=== PATIENT | female | born 1970 | race Caucasian/White ===

== ENCOUNTER 2020-04-29 07:44 | Outpatient (REF) | payer OTHER, SELFPAY | END 2020-04-29 07:45 | disposition home or self-care (01) | LOC: HO.LAB 07:44 | PROVIDERS: Visit Provider Internal Medicine | DX: Z20.828 Contact with and (suspected) exposure to other viral communicable diseases (principal) | CPT/HCPCS: C9803; U0003 ==

== ENCOUNTER 2021-02-05 11:10 | Outpatient (REF) | payer OTHER, SELFPAY ==
[2021-02-05 14:03] LABS: Hematocrit 40.2 % (37-47); Hemoglobin 13.4 g/dl (12.0-16.0); Mean Corpuscular HGB Conc 33.3 g/dl (31.0-35.0); Mean Corpuscular Hemoglobin 31.6 pg (27.0-33.0); Mean Corpuscular Volume 94.8 fL (80-98); Mean Platelet Volume 10.2 fL (9.4-12.3); Platelet Count 269 X10*3/uL (160-400); Red Blood Count 4.24 X10*6/uL (4.20-5.50); Red Cell Distribution Width 12.5 % (11.0-16.0); White Blood Count 5.2 X10*3/uL (4.8-10.8)
[2021-02-05 14:10] LABS: Glucose Urine UA NEG (NEG); Leukocyte Esterase Urine NEG (NEG); Nitrite Urine NEG (NEG); PH 7.5 (5.0-8.0); Specific Gravity - Urine 1.015 (1.005-1.025); Urine Blood NEG (NEG); Urine Ketones NEG (NEG); Urine Protein NEG (NEG-TRACE)
[2021-02-05 14:14] LABS: Appearance Urine CLEAR; Color Urine YELLOW
[2021-02-05 14:31] LABS: Alanine Aminotransferase 19 U/L (0-31); Albumin Level 4.4 g/dL (3.5-5.0); Alkaline Phosphatase 41 U/L (39-117); Anion Gap 16 (12-20); Aspartate Amino Transferase 22 U/L (5-31); Bilirubin Total 0.6 mg/dL (0.0-1.0); Blood Urea Nitrogen 12 mg/dL (9-16); Calcium 9.7 mg/dL (8.4-10.2); Carbon Dioxide 26 mmol/L (22-29); Chloride 103 mmol/L (96-108); Cholesterol 187 mg/dL; Estimated Glomerular Filt Rate > 60; Glucose Fasting 93 mg/dL (60-99); HDL Cholesterol 77 mg/dL; LDL Cholesterol Calculated 97 mg/dl; Potassium 4.6 mmol/L (3.3-5.1); Sodium 140 mmol/L (135-145); Total Protein 7.7 g/dL (6.5-8.0); Triglycerides 67 mg/dL
[2021-02-05 14:36] LABS: Bacteria Urine 1+ /LPF; RBC Urine 0-2 /HPF (0); Squamous Epithelial Cell Urine 3+ /LPF; WBC Urine 0-2 /HPF (0-4)
[2021-02-05 14:46] LABS: TSH reflex Free T4 1.16 uIU/mL (0.32-4.0)
== END 2021-02-05 11:11 | disposition home or self-care (01) ==
LOC: HO.HMGCLDS 11:10
PROVIDERS: PCP Internal Medicine; Visit Provider Internal Medicine
DX: Z00.00 Encounter for general adult medical examination without abnormal findings (principal)
CPT/HCPCS: 36415; 80053; 80061; 81001; 84443; 85027

== ENCOUNTER 2023-01-07 06:41 | Outpatient (REF) | payer OTHER, SELFPAY ==
[2023-01-07 11:39] LABS: Hematocrit 40.4 % (37.0-47.0); Hemoglobin 13.2 g/dl (12.0-16.0); Mean Corpuscular HGB Conc 32.7 g/dl (31.0-35.0); Mean Corpuscular Hemoglobin 31.5 pg (27.0-33.0); Mean Corpuscular Volume 96.4 fL (80.0-98.0); Mean Platelet Volume 10.2 fL (9.4-12.3); Platelet Count 276 X10*3/uL (160-400); Red Blood Count 4.19 X10*6/uL (4.20-5.50); Red Cell Distribution Width 12.4 % (11.0-16.0); White Blood Count 5.7 X10*3/uL (4.8-10.8)
[2023-01-07 11:55] LABS: Appearance Urine Cloudy; Color Urine Yellow; Glucose Urine UA Negative (Negative); Leukocyte Esterase Urine Small (1+) (Negative); Nitrite Urine Negative (Negative); PH 5.5 (5.0-9.0); Specific Gravity - Urine 1.025 (1.005-1.025); UMIC TRIGGER UA YES; Urine Blood Negative (Negative); Urine Ketones 40 mg/dL (Negative); Urine Protein Negative (Neg-Trace)
[2023-01-07 11:59] LABS: Bacteria Urine 1+ (None Seen); Hyaline Casts Urine 0-2 /LPF (0-2); RBC Urine 0-2 /HPF (0-2)
[2023-01-07 12:08] LABS: Alanine Aminotransferase 14 U/L (0-31); Albumin Level 4.2 g/dL (3.5-5.0); Alkaline Phosphatase 42 U/L (39-117); Anion Gap 14 (12-20); Aspartate Amino Transferase 20 U/L (5-31); Bilirubin Total 0.4 mg/dL (0.0-1.0); Blood Urea Nitrogen 15 mg/dL (9-16); Calcium 9.5 mg/dL (8.4-10.2); Carbon Dioxide 25 mmol/L (22-29); Chloride 103 mmol/L (96-108); Cholesterol 167 mg/dL; Estimated Glomerular Filt Rate > 60; Glucose Fasting 86 mg/dL (60-99); HDL Cholesterol 70 mg/dL; LDL Cholesterol Calculated 88 mg/dl; Potassium 3.6 mmol/L (3.3-5.1); Sodium 138 mmol/L (135-145); Total Protein 7.4 g/dL (6.5-8.0); Triglycerides 49 mg/dL
[2023-01-07 12:10] LABS: TSH reflex Free T4 2.88 uIU/mL (0.32-4.0); Vitamin D 25-OH Total 41.7 ng/mL (>30)
== END 2023-01-07 06:42 | disposition home or self-care (01) ==
LOC: HO.HMGCLDS 06:41
PROVIDERS: PCP Internal Medicine; Visit Provider Internal Medicine
DX: Z00.00 Encounter for general adult medical examination without abnormal findings (principal)
CPT/HCPCS: 36415; 80053; 80061; 81001; 82306; 84443; 85027

== ENCOUNTER 2023-01-14 13:00 | Outpatient (AMB) | payer OTHER, SELFPAY ==
--- NOTE | 2023-01-14 13:16 | MHC.PC.OV ---
Vital Signs 01/14/23 13:20 Weight 163 lb BP 120/80 Blood Pressure Location Lt brachial Position Sitting Pulse 84 Pulse Source Pulse Oximeter Pulse Oximetry (%) 97 Oxygen Delivery Method Room Air Intake Visit Reasons: PHY Allergies No Known Allergies Allergy (Verified 01/14/23 13:20) Medication List - Last Reconciled 01/14/23 by Daxa Lee MD No Known Home Meds Tobacco use date assessed: 01/14/23 Dental Screening Dental Screen Date: 01/14/23 Did you have a dental visit in the last 12 months?: Yes Did you have a dental problem in the last 6 months where you did not have access to dental care?: No Was dental information given to patient?: Patient has dentist HPI PHY HPI Details Pt presents for [facility] Medical History (Updated 01/14/23 @ 13:31 by Daxa Lee MD) Annual physical exam Hx of screening mammography Normal Pap smear Surgical History No pertinent past surgical history Family History Father Migraine Mother Diabetes mellitus Brother No problems noted. Son No problems noted. Daughter No problems noted. 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 How often do you have a drink containing alcohol?: Never 3. How often do you have six or more drinks on one occasion?: Never Total Score: 0 Score Reviewed/Action Taken: No Review of Systems Const All systems reviewed & are unremarkable except as noted in HPI and below Reports no additional complaints Eyes Reports no additional complaints ENT Reports no additional complaints Card Reports no additional complaints Resp Reports no additional complaints GI Reports no additional complaints Reports no additional complaints Neuro Reports no additional complaints Physical exam (Primary Care) Vital Signs: Last Vital Signs Pulse 84 01/14/23 13:20 BP 120/80 01/14/23 13:20 Pulse Ox 97 01/14/23 13:20 Oxygen Delivery Method Room Air 01/14/23 13:20 Tobacco/Smoking Status: Tobacco use Status Tobacco use date assessed 01/14/23 01/14/23 13:23 Patient Tobacco Use Status Never used Tobacco 01/14/23 13:19 e-Cigarette/Vaping Use Never Used 01/14/23 13:19 Thrive Assessment: Date of Thrive Assessment Date Thrive assessed 10/02/21 01/14/23 13:19 Const General: no acute distress HENMT Head: Yes normal to inspection Ears: hearing grossly normal bilaterally Face and sinus: Yes normal facial exam Mouth: Normal oral and palatal mucosa present Throat: Yes posterior oropharynx normal Eyes General: appearance normal, both eyes and all related structures Neck Neck: Yes no lymphadenopathy and Yes supple Resp Effort & Inspection: normal respiratory effort Auscultation: clear to auscultation bilaterally Cardio Rhythm: regular rhythm Heart sounds: S1 normal heart sound present and S2 normal heart sound present GI Inspection: Yes normal to inspection Palpation (GI): Soft to palpation Percussion: Yes normal to percussion Auscultation: normal bowel sounds Assessment and Plan Assessment & Plan (1) Annual physical exam: Code(s): Z00.00 - Encounter for general adult medical examination without abnormal findings Plan: WELL-BALANCED AT REGULAR EXERCISE DISCUSSED WITH THE PATIENT. SHE WILL HAVE A COLONOSCOPY (2) Normal Pap smear: Comment: [facility] specialist , pap q 2 years, 2021 (3) Hx of screening mammography: Comment: [facility] 2021 Code(s): Z92.89 - Personal history of other medical treatment Orders: Orders Comprehensive [place]. Panel Fast 365 Days Z00.00 - Encounter for general adult medical examination without abnormal findings Lipid Panel 365 Days Z00.00 - Encounter for general adult medical examination without abnormal findings TSH reflex Free T4 365 Days Z00.00 - Encounter for general adult medical examination without abnormal findings Complete Blood Count Auto Diff 365 Days Z00.00 - Encounter for general adult medical examination without abnormal findings Coding Level of Care Code Est Pt Prev Care 40-64y(99143) Diagnoses Annual physical exam Z00.00 Normal Pap smear Hx of screening mammography Z92.89
[2023-01-14 13:20] VITALS: BP 120/80; PULSE 84; O2SAT 97
== END 2023-01-14 13:47 | disposition home or self-care (01) ==
PROVIDERS: Visit Provider Internal Medicine
DX: Z00.00 Encounter for general adult medical examination without abnormal findings (principal); Z92.89 Personal history of other medical treatment
CPT/HCPCS: 99396

== ENCOUNTER 2023-05-02 09:21 | Outpatient (AMB) | payer OTHER, SELFPAY ==
--- NOTE | 2023-05-02 09:22 | A.OFFPC_ITS ---
Intake Visit Reasons: Follow up anxiety [phone] Allergies No Known Allergies Allergy (Verified 05/02/23 09:23) Medication List - Last Reconciled 05/02/23 by Daxa Lee MD buspirone 5 mg PO BID Tobacco use date assessed: 01/14/23 Dental Screening Dental Screen Date: 05/02/23 Did you have a dental visit in the last 12 months?: Yes Did you have a dental problem in the last 6 months where you did not have access to dental care?: No Was dental information given to patient?: Patient has dentist HPI Follow up anxiety [phone] HPI Details Pt presents for telehealth for anxiety, stable on Buspirone [facility] Medical History (Updated 05/02/23 @ 09:38 by Daxa Lee MD) Hx of screening mammography Annual physical exam Normal Pap smear Surgical History No pertinent past surgical history Family History Father Migraine Mother Diabetes mellitus Brother No problems noted. Son No problems noted. Daughter No problems noted. 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 1. Little interest or pleasure in doing things: not at all 2. Feeling down, depressed, or hopeless: several days 3. Trouble falling or staying asleep, or sleeping too much: not at all 4. Feeling tired or having little energy: several days 5. Poor appetite or overeating: several days 6. Feeling bad about yourself - or that you are a failure or have let yourself or your family down: not at all 7. Trouble concentrating on things, such as reading the newspaper or watching television: not at all 8. Moving or speaking so slowly that other people could have noticed. Or the opposite - being so fidgety or restless that you have been moving around a lot more than usual: not at all 9. Thoughts that you would be better off or of hurting yourself in some way: not at all Total score: 3 Depression Screening Interpretation: Negative Depression Screening Done: Yes Source: Developed by Drs. oCnnor Reyes, Amy Santacruz, Timothy Cary and colleagues, with an educational korin from [email or web address]. Thrive Questionnaire Date Thrive assessed: 05/02/23 I am a: Patient What is your living situation today?: I have a steady place to live Within the past 12 months, did the food you bought not last and you didn't have the money to get more?: Never true Within the past 12 months, did you worry whether your food would run out before you got money to buy more?: Never true Do you have trouble paying for medicines?: No Do you have trouble getting transportation to medical appointments?: No Do you have trouble paying your heating and electricity bill?: No Do you have trouble taking care of your child, family member or friend?: No Do you have trouble with day-to-day activities such as bathing, preparing meals, shopping, managing finances, etc.?: No Are you currently unemployed and looking for a job?: No Are you interested in more education?: No Please select the resources that you would like help with: None AUDIT C Alcohol Use Questionnaire (AUDIT-C) 1. How often do you have a drink containing alcohol?: Never 3. How often do you have six or more drinks on one occasion?: Never Total Score: 0 KANDICE-7 AMB Questionnaire KANDICE-7 Date KANDICE - 7 assessed: 05/02/23 Feeling nervous, anxious, or on edge: 1 = Several days Not being able to stop or control worryin = Not at all Worrying too much about different things: 0 = Not at all Trouble relaxin = Not at all Being so restless that it is hard to sit still: 0 = Not at all Becoming easily annoyed or irritable: 0 = Not at all Feeling afraid as if something awful might happen: 0 = Not at all Total KANDICE-7 score (0-4 normal; 5-9 mild; 10-14 moderate; 15-21 severe): 1 Source: Developed by Drs. Connor Reyes, Amy Santacruz, Timothy Cary and colleagues, with an educational korin from [email or web address]. Review of Systems Const All systems reviewed & are unremarkable except as noted in HPI and below Reports no additional complaints Eyes Reports no additional complaints ENT Reports no additional complaints Card Reports no additional complaints Resp Reports no additional complaints GI Reports no additional complaints Reports no additional complaints Musc Reports no additional complaints Physical exam (Primary Care) Tobacco/Smoking Status: Tobacco use Status Tobacco use date assessed 01/14/23 05/02/23 09:23 Patient Tobacco Use Status Never used Tobacco 05/02/23 09:23 e-Cigarette/Vaping Use Never Used 05/02/23 09:23 PHQ-9: PHQ-9 Score PHQ-9: Total score 3 05/02/23 09:30 Depression Screening Interpretation: Negative Thrive Assessment: Date of Thrive Assessment Date Thrive assessed 05/02/23 05/02/23 09:30 Telehealth Telehealth Location of provider rendering services: practice address Location of patient: address on file Patient Identification confirmed using: Name, : Yes Telehealth method: voice only Patient verbally consented to treatment: Yes Patient verbally consented to billing insurance company: Yes Patient informed of any privacy concerns related to visit: Yes Minutes spent on Phone/Video with Pt.: 15 Assessment and Plan Assessment & Plan (1) Anxiety: Code(s): F41.9 - Anxiety disorder, unspecified Plan: increase Buspar to 7.5 bid and will call if needs a refill, Coding Level of Care Code Tele Est Pt Level 3 (19591) Diagnoses Anxiety F41.9
== END 2023-05-02 09:49 | disposition home or self-care (01) ==
LOC: HO.HMGC 09:21
PROVIDERS: PCP Internal Medicine; Visit Provider Internal Medicine
DX: F41.9 Anxiety disorder, unspecified (principal)
CPT/HCPCS: 99213

== ENCOUNTER 2023-08-04 09:38 | Outpatient (AMB) | payer OTHER, SELFPAY ==
--- NOTE | 2023-08-04 09:38 | A.OFFPC_ITS ---
Intake Visit Reasons: Medication F/U [phone] Allergies No Known Allergies Allergy (Verified 08/04/23 09:40) Medication List - Last Reconciled 08/04/23 by Daxa Lee MD buspirone 10 mg PO BID Tobacco use date assessed: 08/04/23 Dental Screening Dental Screen Date: 08/04/23 Did you have a dental visit in the last 12 months?: Yes Did you have a dental problem in the last 6 months where you did not have access to dental care?: No Was dental information given to patient?: Patient has dentist HPI Medication F/U [phone] HPI Details Pt presents for f/u Telehealth visit. Anxiety is better on Buspar but patient still occasionally feels sad and anxious usually in the evening. She denies insomnia change in appetite suicidal ideation. Pt's daughter moved to [place] last year and patient is missing her. Her daughter is and due in January. [facility] Medical History Hx of screening mammography Annual physical exam Normal Pap smear Surgical History No pertinent past surgical history Family History Father Migraine Mother Diabetes mellitus Brother No problems noted. Son No problems noted. Daughter No problems noted. 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 1. Little interest or pleasure in doing things: not at all 2. Feeling down, depressed, or hopeless: not at all 3. Trouble falling or staying asleep, or sleeping too much: not at all 4. Feeling tired or having little energy: several days 5. Poor appetite or overeating: not at all 6. Feeling bad about yourself - or that you are a failure or have let yourself or your family down: not at all 7. Trouble concentrating on things, such as reading the newspaper or watching television: not at all 8. Moving or speaking so slowly that other people could have noticed. Or the opposite - being so fidgety or restless that you have been moving around a lot more than usual: not at all 9. Thoughts that you would be better off or of hurting yourself in some way: not at all Total score: 1 Depression Screening Interpretation: Negative Depression Screening Done: Yes Source: Developed by Drs. Connor Reyes, Amy Santacruz, Timothy Cary and colleagues, with an educational korin from [employer]. Thrive Questionnaire Date Thrive assessed: 08/04/23 I am a: Patient What is your living situation today?: I have a steady place to live Within the past 12 months, did the food you bought not last and you didn't have the money to get more?: Never true Within the past 12 months, did you worry whether your food would run out before you got money to buy more?: Never true Do you have trouble paying for medicines?: No Do you have trouble getting transportation to medical appointments?: No Do you have trouble paying your heating and electricity bill?: No Do you have trouble taking care of your child, family member or friend?: No Do you have trouble with day-to-day activities such as bathing, preparing meals, shopping, managing finances, etc.?: No Are you currently unemployed and looking for a job?: No Are you interested in more education?: No Please select the resources that you would like help with: None Currently or been in a relationship where the following occur: no concerns reported THRIVE Score: 0 AUDIT C Alcohol Use Questionnaire (AUDIT-C) 1. How often do you have a drink containing alcohol?: Never 3. How often do you have six or more drinks on one occasion?: Never Total Score: 0 KANDICE-7 AMB Questionnaire KANDICE-7 Date KANDICE - 7 assessed: 08/04/23 Feeling nervous, anxious, or on edge: 0 = Not at all Not being able to stop or control worryin = Not at all Worrying too much about different things: 0 = Not at all Trouble relaxin = Not at all Being so restless that it is hard to sit still: 0 = Not at all Becoming easily annoyed or irritable: 0 = Not at all Feeling afraid as if something awful might happen: 0 = Not at all Total KANDICE-7 score (0-4 normal; 5-9 mild; 10-14 moderate; 15-21 severe): 0 Source: Developed by Drs. Connor Reyes, Amy Santacruz, Timothy Cary and colleagues, with an educational korin from [employer]. KANDICE-7 Assessment Billing KANDICE-7 Assessment Tool: KANDICE-7 Assessment 78458 Review of Systems Const All systems reviewed & are unremarkable except as noted in HPI and below Reports no additional complaints Eyes Reports no additional complaints ENT Reports no additional complaints Card Reports no additional complaints Resp Reports no additional complaints GI Reports no additional complaints Reports no additional complaints Musc Reports no additional complaints Physical exam (Primary Care) Tobacco/Smoking Status: Tobacco use Status Tobacco use date assessed 08/04/23 08/04/23 09:45 Patient Tobacco Use Status Never used Tobacco 08/04/23 09:45 e-Cigarette/Vaping Use Never Used 08/04/23 09:45 PHQ-9: PHQ-9 Score PHQ-9: Total score 1 08/04/23 09:45 Depression Screening Interpretation: Negative Thrive Assessment: Date of Thrive Assessment Date Thrive assessed 08/04/23 08/04/23 09:45 Currently or been in a relationship where the following occur: no concerns reported Telehealth Telehealth Location of provider rendering services: practice address Location of patient: address on file Patient Identification confirmed using: Name, : Yes Telehealth method: voice only Patient verbally consented to treatment: Yes Patient verbally consented to billing insurance company: Yes Patient informed of any privacy concerns related to visit: Yes Minutes spent on Phone/Video with Pt.: 15 Assessment and Plan Assessment & Plan (1) Anxiety: Code(s): F41.9 - Anxiety disorder, unspecified Plan: Stress and anxiety management discussed with the patient. She was advised to start regular physical activity get social interaction with her friends and family. Patient declined counseling. Buspirone will be increased to 10 mg twice a day and patient will follow-up for her physical in January Medications: New buspirone 10 mg PO BID 180 tabs 3RF Discontinued buspirone Discontinued Reason: Doctor's Order 7.5 mg (1.5 x 5 mg) PO BID 270 tabs 0RF Coding Level of Care Code Tele Est Pt Level 3 (32161) Diagnoses Anxiety F41.9 Additional Codes KANDICE-7 Assessment Billing - KANDICE-7 Assessment Tool: KANDICE-7 Assessment 11922 ([id number])
== END 2023-08-04 10:18 | disposition home or self-care (01) ==
LOC: HO.HMGC 09:38
PROVIDERS: PCP Internal Medicine; Visit Provider Internal Medicine
DX: F41.9 Anxiety disorder, unspecified (principal)
CPT/HCPCS: 99213

== ENCOUNTER 2024-01-19 14:01 | Outpatient (AMB) | payer OTHER, SELFPAY ==
--- NOTE | 2024-01-19 14:01 | MHC.PC.OV ---
Intake Visit Reasons: Discuss taper med iPhone Allergies No Known Allergies Allergy (Verified 01/19/24 14:02) Medication List - Last Reconciled 01/19/24 by Daxa Lee MD buspirone 10 mg PO BID Tobacco use date assessed: 01/19/24 Dental Screening Dental Screen Date: 01/19/24 Did you have a dental visit in the last 12 months?: Yes Did you have a dental problem in the last 6 months where you did not have access to dental care?: No Was dental information given to patient?: Patient has dentist HPI Discuss taper med iPhone HPI Details This is a telehealth visit, patient would like to taper off buspirone. She has been feeling better denies panic attacks or increased anxiety. Patient has been physically active at least 3 times a week. She is expecting her first grandchild and will travel to [place] once the baby is born. [facility] Medical History Hx of screening mammography Annual physical exam Normal Pap smear Surgical History No pertinent past surgical history Family History Father Migraine Mother Diabetes mellitus Brother No problems noted. Son No problems noted. Daughter No problems noted. 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 How often do you have a drink containing alcohol?: Never 3. How often do you have six or more drinks on one occasion?: Never Total Score: 0 KANDICE-7 AMB Questionnaire KANDICE-7 Date KANDICE - 7 assessed: 08/04/23 Source: Developed by Drs. Connor Reyes, Amy SantacruzTimothy and colleagues, with an educational korin from [employer]. Review of Systems Const All systems reviewed & are unremarkable except as noted in HPI and below Eyes Reports no additional complaints ENT Reports no additional complaints Card Reports no additional complaints Resp Reports no additional complaints GI Reports no additional complaints Physical exam (Primary Care) Tobacco/Smoking Status: Tobacco use Status Tobacco use date assessed 01/19/24 01/19/24 14:03 Patient Tobacco Use Status Never used Tobacco 01/19/24 14:03 e-Cigarette/Vaping Use Never Used 01/19/24 14:03 Thrive Assessment: Date of Thrive Assessment Date Thrive assessed 08/04/23 01/19/24 14:03 Telehealth Telehealth Telehealth Platform: Other (please specify) (Ipad) Location of provider rendering services: practice address Location of patient: address on file Patient Identification confirmed using: Name, : Yes Telehealth method: video Patient verbally consented to treatment: Yes Patient verbally consented to billing insurance company: Yes Patient informed of any privacy concerns related to visit: Yes Minutes spent on Phone/Video with Pt.: 15 Assessment and Plan Assessment & Plan (1) Anxiety: Code(s): F41.9 - Anxiety disorder, unspecified Plan: SLOW TAPER OFF OF BUSPIRONE DISCUSSED WITH THE PATIENT. STRESS MANAGEMENT INCLUDING REGULAR MINDFULNESS AND PHYSICAL ACTIVITY DISCUSSED. Coding Level of Care Code Tele Est Pt Level 3 (67551) Diagnoses Anxiety F41.9
== END 2024-01-19 14:45 | disposition home or self-care (01) ==
LOC: HO.HMGC 14:01
PROVIDERS: PCP Internal Medicine; Visit Provider Internal Medicine
DX: F41.9 Anxiety disorder, unspecified (principal)
CPT/HCPCS: 99213

== ENCOUNTER 2024-05-18 10:09 | Outpatient (AMB) | payer OTHER, SELFPAY ==
--- NOTE | 2024-05-18 10:30 | A.OFFPC_ITS ---
Vital Signs 05/18/24 10:31 Height 5 ft 4 in Weight 188 lb BMI 32.3 BP 110/66 Blood Pressure Location Lt brachial Position Sitting Pulse 76 Pulse Source Pulse Oximeter Pulse Oximetry (%) 99 Oxygen Delivery Method Room Air Intake Visit Reasons: Physical Exam Intake Note: Pt is here today for PE. Allergies No Known Allergies Allergy (Verified 05/18/24 10:37) Tobacco use date assessed: 05/18/24 Dental Screening Dental Screen Date: 01/19/24 HPI Physical Exam HPI Details Pt presents for PE. [facility] Medical History (Updated 05/18/24 @ 11:00 by Daxa Lee MD) Hx of screening mammography Annual physical exam Normal Pap smear Surgical History No pertinent past surgical history Family History Father Migraine Mother Diabetes mellitus Brother No problems noted. Son No problems noted. Daughter No problems noted. 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 1. Little interest or pleasure in doing things: not at all 2. Feeling down, depressed, or hopeless: not at all 3. Trouble falling or staying asleep, or sleeping too much: not at all 4. Feeling tired or having little energy: not at all 5. Poor appetite or overeating: not at all 6. Feeling bad about yourself - or that you are a failure or have let yourself or your family down: not at all 7. Trouble concentrating on things, such as reading the newspaper or watching television: not at all 8. Moving or speaking so slowly that other people could have noticed. Or the opposite - being so fidgety or restless that you have been moving around a lot more than usual: not at all 9. Thoughts that you would be better off or of hurting yourself in some way: not at all Total score: 0 Depression Screening Interpretation: Negative Depression Screening Done: Yes 87036 - PHQ-9 Billing: Yes Source: Developed by Drs. Connor Reyes, Amy Santacruz, Timtohy Cary and colleagues, with an educational korin from [employer]. Thrive Questionnaire Date Thrive assessed: 05/17/24 I am a: Patient What is your living situation today?: I have a steady place to live Within the past 12 months, did the food you bought not last and you didn't have the money to get more?: Never true Within the past 12 months, did you worry whether your food would run out before you got money to buy more?: Never true Do you have trouble paying for medicines?: No Do you have trouble getting transportation to medical appointments?: No Do you have trouble paying your heating and electricity bill?: No Do you have trouble taking care of your child, family member or friend?: No Do you have trouble with day-to-day activities such as bathing, preparing meals, shopping, managing finances, etc.?: No Are you currently unemployed and looking for a job?: No Are you interested in more education?: No Please select the resources that you would like help with: None Currently or been in a relationship where the following occur: No concerns reported THRIVE Score: 0 AUDIT C Alcohol Use Questionnaire (AUDIT-C) 1. How often do you have a drink containing alcohol?: Never 3. How often do you have six or more drinks on one occasion?: Never Total Score: 0 KANDICE-7 AMB Questionnaire KANDICE-7 Date KANDICE - 7 assessed: 05/18/24 Feeling nervous, anxious, or on edge: 0 = Not at all Not being able to stop or control worryin = Not at all Worrying too much about different things: 0 = Not at all Trouble relaxin = Not at all Being so restless that it is hard to sit still: 0 = Not at all Becoming easily annoyed or irritable: 0 = Not at all Feeling afraid as if something awful might happen: 0 = Not at all Total KANDICE-7 score (0-4 normal; 5-9 mild; 10-14 moderate; 15-21 severe): 0 Source: Developed by Drs. Connor Reyes, Amy Santacruz, Timothy Cary and colleagues, with an educational korin from [employer]. KANDICE-7 Assessment Billing KANDICE-7 Assessment Tool: KANDICE-7 Assessment 30338 Review of Systems Const All systems reviewed & are unremarkable except as noted in HPI and below Reports no additional complaints Eyes Reports no additional complaints ENT Reports no additional complaints Card Reports no additional complaints Resp Reports no additional complaints GI Reports no additional complaints Reports no additional complaints Physical exam (Primary Care) Vital Signs: Last Vital Signs Pulse 76 05/18/24 10:31 BP 110/66 05/18/24 10:31 Pulse Ox 99 05/18/24 10:31 Oxygen Delivery Method Room Air 05/18/24 10:31 BMI result Body Mass Index 32.3 Tobacco/Smoking Status: Tobacco use Status Tobacco use date assessed 05/18/24 05/18/24 10:39 Patient Tobacco Use Status Never used Tobacco 05/18/24 10:31 e-Cigarette/Vaping Use Never Used 05/18/24 10:31 PHQ-9: PHQ-9 Score PHQ-9: Total score 0 05/18/24 10:39 Depression Screening Interpretation: Negative Thrive Assessment: Date of Thrive Assessment Date Thrive assessed 05/17/24 05/18/24 10:31 Currently or been in a relationship where the following occur: No concerns reported Const General: no acute distress HENMT Head: Yes normal to inspection Ears: hearing grossly normal bilaterally Face and sinus: Yes normal facial exam Eyes General: appearance normal, both eyes and all related structures Neck Neck: Yes supple Resp Effort & Inspection: normal respiratory effort Auscultation: clear to auscultation bilaterally Cardio Rhythm: regular rhythm Heart sounds: S1 normal heart sound present and S2 normal heart sound present GI Inspection: Yes normal to inspection Palpation (GI): Soft to palpation Percussion: Yes normal to percussion Auscultation: normal bowel sounds Coding Level of Care Code Est Pt Prev Care 40-64y(88725) Diagnoses Normal Pap smear Z12.4 Annual physical exam Z00.00 Additional Codes KANDICE-7 Assessment Billing - KANDICE-7 Assessment Tool: KANDICE-7 Assessment 85371 ([id number]) PHQ-9 - 26496 - PHQ-9 Billing: Yes ([id number]) Assessment & Plan Assessment & Plan (1) Normal 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 Panel Fast Today Z00.00 - Encounter for general adult medic al examination without abnormal findings Lipid Panel Today Z00.00 - Encounter for general adult medical examination without abnormal findings TSH reflex Free T4 Today Z00.00 - Encounter for general adult medical examination without abnormal findings UA w Microscopic Today Z00.00 - Encounter for general adult medical examination without abnormal findings Comprehensive [place]. Panel Fast 1 Year Z00.00 - Encounter for general adult medical examination without abnormal findings Complete Blood Count Auto Diff Today Z00.00 - Encounter for general adult medical examination without abnormal findings Vitamin D 25-OH Total Today Z00.00 - Encounter for general adult medical examination without abnormal findings Complete Blood Count Auto Diff 1 Year Z00.00 - Encounter for general adult medical examination without abnormal findings Lipid Panel 1 Year Z00.00 - Encounter for general adult medical examination without abnormal findings
[2024-05-18 10:31] VITALS: BP 110/66; PULSE 76; O2SAT 99; BMI 32.3
== END 2024-05-18 11:14 | disposition home or self-care (01) ==
PROVIDERS: PCP Internal Medicine; Visit Provider Internal Medicine
DX: Z12.4 Encounter for screening for malignant neoplasm of cervix (principal); Z00.00 Encounter for general adult medical examination without abnormal findings

== ENCOUNTER 2024-05-18 10:09 | Outpatient (REF) | payer OTHER, SELFPAY ==
[2024-05-18 12:57] LABS: MANUAL DIFF FLAG NO
[2024-05-18 13:00] LABS: Appearance Urine Clear; Color Urine Yellow; Glucose Urine UA Negative (Negative); Leukocyte Esterase Urine Negative (Negative); Nitrite Urine Negative (Negative); Specific Gravity - Urine 1.025 (1.005-1.025); Urine Blood Negative (Negative); Urine Ketones 15 mg/dL (Negative); Urine Protein Negative (Neg-Trace)
[2024-05-18 13:05] LABS: Basophils Absolute Auto 0.1 X10*3/uL (0.0-0.2); Eosinophils Absolute Auto 0.1 X10*3/uL (0.0-0.4); Eosinophils Percent Auto 2.5 % (0-4); Hematocrit 40.3 % (37.0-47.0); Hemoglobin 13.7 g/dl (12.0-16.0); Imm Gran Abs Auto 0.02 X10*3/uL (0.00-0.03); Imm Gran Pct Auto 0.4 % (0.0-0.4); Lymphocytes Absolute Auto 1.4 X10*3/uL (1.2-4.9); Lymphocytes Percent Auto 28.4 % (20-40); Mean Corpuscular Hemoglobin 31.9 pg (27.0-33.0); Mean Corpuscular Volume 93.7 fL (80.0-98.0); Mean Platelet Volume 9.6 fL (9.4-12.3); Monocytes Absolute Auto 0.5 X10*3/uL (0.1-1.2); Monocytes Percent Auto 9.5 % (2-11); Neutrophils Absolute Auto 2.8 x10*3/uL (2.0-8.3); Neutrophils Percent Auto 58.2 % (45-73); Platelet Count 304 X10*3/uL (160-400); Red Cell Distribution Width 12.4 % (11.0-16.0); White Blood Count 4.8 X10*3/uL (4.8-10.8)
[2024-05-18 13:14] LABS: Bacteria Urine None Seen (None Seen); Hyaline Casts Urine 0-2 /LPF (0-2); RBC Urine 0-2 /HPF (0-2); WBC Urine 0-5 /HPF (0-5)
[2024-05-18 13:21] LABS: Alanine Aminotransferase 23 U/L (0-31); Albumin Level 4.2 g/dL (3.5-5.0); Alkaline Phosphatase 48 U/L (39-117); Anion Gap 11 (12-20); Aspartate Amino Transferase 29 U/L (5-31); Bilirubin Total 0.3 mg/dL (0.0-1.0); Blood Urea Nitrogen 13 mg/dL (9-16); Calcium 9.7 mg/dL (8.4-10.2); Carbon Dioxide 29 mmol/L (22-29); Chloride 104 mmol/L (96-108); Cholesterol 185 mg/dL (<200); Estimated Glomerular Filt Rate > 60; Glucose Fasting 94 mg/dL (60-99); HDL Cholesterol 73 mg/dL (>40); LDL Cholesterol Calculated 102 mg/dL (<100); Potassium 4.2 mmol/L (3.3-5.1); Sodium 140 mmol/L (135-145); Total Protein 7.8 g/dL (6.5-8.0); Triglycerides 52 mg/dL (<150)
[2024-05-18 13:40] LABS: TSH reflex Free T4 1.26 uIU/mL (0.32-4.0); Vitamin D 25-OH Total 30.5 ng/mL (>30)
== END 2024-05-18 10:10 | disposition home or self-care (01) ==
LOC: HO.HMGCLDS 10:09
PROVIDERS: PCP Internal Medicine; Visit Provider Internal Medicine
DX: Z00.00 Encounter for general adult medical examination without abnormal findings (principal)
CPT/HCPCS: 36415; 80053; 80061; 81001; 82306; 84443; 85025; 96127

== ENCOUNTER 2024-08-31 10:01 | Day surgery (SDC) | payer OTHER, SELFPAY ==
[2024-08-29 12:41] VITALS: BMI 32.3
--- NOTE | 2024-08-30 09:40 | P.CONAN_ITS ---
Documented by User: Vickie Marshall NP 08/30/24 09:44 HPI - Anesthesia Eval Consult details Narrative: 53yo F for Colonoscopy PMFSH Active Problems Active Problems: All Active Problems Anxiety (Acute) Hx of screening mammography (Acute) Annual physical exam (Acute) Normal Pap smear (Acute) Past Medical History Medical History Anxiety Hx of screening mammography Annual physical exam Normal Pap smear Family History Family History Father Migraine Mother Diabetes mellitus Brother No problems noted. Son No problems noted. Daughter No problems noted. 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 (in [place] Housing: House Alcohol intake: current Alcohol intake frequency: holidays/special occasions only Patient Tobacco Use Status: Never used Tobacco e-Cigarette/Vaping Use: Never Used Use of substances other than those prescribed or required for medical reasons: No Are you DNR?: No Advance Directives: No Advance Directives Information Provided: Yes service: No Current occupational status: employed Cognitive needs: No Hearing needs: No Vision needs: Yes Meds Allergies Allergy/AdvReac Type Severity Reaction Status Date / Time No Known Allergies Allergy Verified 08/31/24 10:54 Home Medications ?Medication ?Instructions ?Recorded ?Confirmed ?Last Taken ?Type No Known Home Meds 08/31/24 08/31/24 Unknown History Exam Height,Weight and Vital Signs: Height 5 ft 4 in Weight 85.275 kg Assessment and Plan Assessment Anesthesia Assessment: Chart Reviewed Documented by User: Rupinder Pearson MD 08/31/24 11:52 PMFSH Active Problems Active Problems: All Active Problems Anxiety (Acute) Hx of screening mammography (Acute) Annual physical exam (Acute) Normal Pap smear (Acute) Increased BMI. Denies BERNIE Past Medical History Medical History Anxiety Hx of screening mammography Annual physical exam Normal Pap smear Family History Family History Father Migraine Mother Diabetes mellitus Brother No problems noted. Son No problems noted. Daughter No problems noted. 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[place] Housing: House Alcohol intake: current Alcohol intake frequency: holidays/special occasions only Patient Tobacco Use Status: Never used Tobacco e-Cigarette/Vaping Use: Never Used Use of substances other than those prescribed or required for medical reasons: No Are you DNR?: No Advance Directives: No Advance Directives Information Provided: Yes service: No Current occupational status: employed Cognitive needs: No Hearing needs: No Vision needs: Yes Meds Allergies Allergy/AdvReac Type Severity Reaction Status Date / Time No Known Allergies Allergy Verified 08/31/24 10:54 Home Medications ?Medication ?Instructions ?Recorded ?Confirmed ?Last Taken ?Type No Known Home Meds 08/31/24 08/31/24 Unknown History Exam Height,Weight and Vital Signs: Height 5 ft 4 in Weight 85.275 kg Vital Signs Temp Pulse Resp BP Pulse Ox O2 Del Method 08/31/24 10:55 99 F 95 20 128/83 98 Room Air Airway Mallampati Class: III (Small mouth opening) TM Dist: >3cm Neck ROM: Full Loose/Missing/Broken Teeth: Yes (Molars missing. Denies broken or loose teeth) Heart: RRR Lungs: CTAB Assessment and Plan Assessment Anesthesia Assessment: Anesthesia Plan Discussed and Chart Reviewed Final Anesthetic Review Family History of Problems with Anesthesia: No History of Problems with Anesthesia: No NPO: Yes ASA Class: II Final Preanesthetic Review: No Changes in Pt Med Stat, Meds/Allgs Chart Reviewed, Consent Obtained/Reviewed and Anes Risks/Benef Reviewed Patient Risk: Intermediate Procedure Risk: Low Assessment/Block/Sedation in SS: Assess/Block/Sedation-SS Anesthetic Plan Anesthetic Plan: TIVA Disposition: Standard PACU
--- NOTE | 2024-08-31 10:29 | MHC.SHP ---
Pre-Procedural Eval Section A - 24 Hr Update-Section A only Date of Service: 08/31/24 The patient is an INPATIENT: No The patient has been examined within 24 hours of the surgical procedure. The History & Physical has been completed within 30 days and I have reviewed it.: No Section B - Complete if H&P > 30 days Chief Complaint: Colon cancer screening - direct access Relevant Family History (Specify if Yes): No Relevant Social History: None Present Medications: see Short Stay Collaborative assessment Medical History: Significant History (Anxiety) History of Previous Operations: No relevant previous surgery Allergies: Allergies Allergy/AdvReac Type Severity Reaction Status Date / Time No Known Allergies Allergy Verified 05/18/24 10:37 Review of Systems Sugical H&P ROS: Negative: Constitution, Cardiovascular, Respiratory and Gastrointestinal Exam Surgical H&P Exam: Normal: Heart, Normal: Lungs, Normal: Extremities and Normal: Abdomen Plan Diagnosis/Plan: Change (Proceed with colonoscopy) I have reviewed the history and physical and performed a pertinent physical examination on my patient. No changes have occurred unless specified. Time Spent With Patient Time: Total time managing care of this patient today ____ minutes.
[2024-08-31 10:49] VITALS: BMI 30.6
[2024-08-31 10:55] VITALS: BP 128/83; PULSE 95; RESP 20; TEMP 37.2; O2SAT 98
[2024-08-31] MEDS: Lactated Ringers 1,000 ML 100 ML IVCONT (11:19)
--- NOTE | 2024-08-31 12:08 | HO.OPN-COLON ---
Colonoscopy Operative Note Operative Note Date of Service: 08/31/24 Narrative: COLONOSCOPY TILL CECUM WITH BIOPSIES AND SNARE POLYPECTOMY Pre-op diagnosis: Colon cancer screening (first colon). Post-op diagnosis:? Colon polyps, Diverticulosis, hemorrhoids Endoscopist:? Suzanne Desai MD Anesthesia:?MAC Consent: Indications for the procedure and potential complications of bleeding, perforation, reaction to medications and missed diagnosis were discussed with the patient and informed consent was obtained. Instrument: Olympus PCF H 190 L variable stiffness pediatric colonoscope Monitoring: Vital signs and clinical assessment, intermittent blood pressure monitoring, continuous EKG monitoring, Pulse oximetry and Carbon Dioxide monitoring were done throughout the procedure. Please see anesthesia flowsheet. Colon withdrawl time was 20 minutes. Procedure: The patient was placed in the left lateral decubitis position and pre-procedure medications were administered. After a digital rectal examination of the ano-rectum, the video colonoscope was inserted into the rectum and advanced through the colon to the cecum. The colonoscope was slowly withdrawn in a retrograde panoramic fashion and the colon mucosa was carefully examined including a retroflexed view of the rectum. Findings and interventions are described below. Procedure Difficulty: Colon was long and tortuous and there was spasm and some loop formation Findings: Terminal Ileum: Not evaluated Cecum: Normal Ascending Colon: Moderate diverticulosis throughout the entire colon Transverse Colon: Moderate diverticulosis throughout the entire colon Descending Colon: Moderate diverticulosis throughout the entire colon Sigmoid Colon: A 10-12 mm sessile polyp at 30 cms - removed with a hot snare. A 7-8 mm sessile polyp - removed with a hot snare. A 4-5 mm sessile polyp - removed with a cold snare. Residual polyp removed with a cold biopsy. Severe diverticulosis with luminal narrowing Rectum: Normal Ano-rectum: Moderate internal hemorrhoids and hypertrophied anal papillae Colon preparation: Good after some irrigation. Garland Bowel Preparation Scale Right colon; 2 Transverse colon: 2 Left colon; 2 (0 = Unprepared colon segment with mucosa not seen due to solid stool that cannot be cleared. 1 = Portion of mucosa of the colon segment seen, but other areas of the colon segment not well seen due to staining, residual stool and/or opaque liquid. 2 = Minor amount of residual staining, small fragments of stool and/or opaque liquid, but mucosa of colon segment seen well. 3 = Entire mucosa of colon segment seen well with no residual staining, small fragments of stool or opaque liquid) Impression and Post Procedure Diagnosis: Colonoscopy Findings: Three small to medium sized polyps were removed Moderate diverticulosis seen in the entire colon Moderate hemorrhoids on retroflexed exam. Plan: I will send a letter with biopsy results. Repeat Colonoscopy in 3-5 years if polyps are adenomatous and 10 year if polyps are hyperplastic. Above findings were reviewed with the patient and relevant handouts were given and the discharge area. Pt complained of chronic constipation. She was advised to schedule a FU appt in the GI clinic to discuss management of constipation.
[2024-08-31 12:13] VITALS: BP 111/73; PULSE 92; RESP 18; TEMP 36.2; O2SAT 96
[2024-08-31 12:28] VITALS: BP 113/69; PULSE 70; RESP 16; TEMP 36.2; O2SAT 99
== END 2024-08-31 13:12 | disposition home or self-care (01) ==
PROVIDERS: PCP Internal Medicine; Visit Provider Internal Medicine Gastroenterology
PROC: 0DJD8ZZ Inspection of Lower Intestinal Tract, Via Natural or Artificial Opening Endoscopic (ICD-10-PCS; CPT 45378; principal; 2024-08-31 11:30)
DX: Z12.11 Encounter for screening for malignant neoplasm of colon (principal); D12.5 Benign neoplasm of sigmoid colon; K56.2 Volvulus; K57.30 Diverticulosis of large intestine without perforation or abscess without bleeding; K64.8 Other hemorrhoids; K62.89 Other specified diseases of anus and rectum
CPT/HCPCS: 45385; 45380; 88305; J2704; J3010

== ENCOUNTER → 2024-08-31 10:01 | Outpatient (BNV) | payer OTHER, SELFPAY | PROVIDERS: PCP Internal Medicine; Visit Provider Internal Medicine Gastroenterology | DX: Z12.11 Encounter for screening for malignant neoplasm of colon (principal); D12.5 Benign neoplasm of sigmoid colon; K57.90 Diverticulosis of intestine, part unspecified, without perforation or abscess without bleeding; K64.8 Other hemorrhoids | CPT/HCPCS: 45385 ==

== ENCOUNTER 2024-12-12 13:54 | Outpatient (AMB) | payer OTHER, SELFPAY ==
--- NOTE | 2024-12-12 14:01 | A.OFFPC_ITS ---
Vital Signs 12/12/24 14:09 Height 5 ft 4 in Weight 173 lb BMI 29.7 BP 120/74 Blood Pressure Location Lt brachial Position Sitting Respiration 18 Pulse 82 Pulse Source Pulse Oximeter Temp 98.1 F Temp Source Oral Pulse Oximetry (%) 97 Oxygen Delivery Method Room Air Intake Visit Reasons: Followup depression Allergies No Known Allergies Allergy (Verified 12/12/24 14:23) Medication List - Last Reconciled 12/12/24 by Daxa Lee MD buspirone 15 mg PO TID sertraline 50 mg PO DAILY Tobacco use date assessed: 12/12/24 Dental Screening Dental Screen Date: 12/12/24 Did you have a dental visit in the last 12 months?: Yes Did you have a dental problem in the last 6 months where you did not have access to dental care?: No Was dental information given to patient?: Patient has dentist HPI Followup depression HPI Details Patient complains of 2 months of feeling down, sad and crying loss of the days of the week, decreased appetite. insomnia on and off a hot flashes. Her menses are irregular. Patient was able to work until mid November when she started a summer break. Patient denies suicide ideation. Anxiety is better on BuSpar. Patient denies any changes in her work or personal life [facility] Medical History Anxiety Hx of screening mammography Annual physical exam Normal Pap smear Surgical History No pertinent past surgical history Family History Father Migraine Mother Diabetes mellitus Brother No problems noted. Son No problems noted. Daughter No problems noted. 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 1. Little interest or pleasure in doing things: several days 2. Feeling down, depressed, or hopeless: several days 3. Trouble falling or staying asleep, or sleeping too much: several days 4. Feeling tired or having little energy: several days 5. Poor appetite or overeating: several days 6. Feeling bad about yourself - or that you are a failure or have let yourself or your family down: not at all 7. Trouble concentrating on things, such as reading the newspaper or watching television: not at all 8. Moving or speaking so slowly that other people could have noticed. Or the opposite - being so fidgety or restless that you have been moving around a lot more than usual: several days 9. Thoughts that you would be better off or of hurting yourself in some way: not at all Total score: 6 Depression Screening Interpretation: Negative Depression Screening Done: Yes 31740 - PHQ-9 Billing: Yes Source: Developed by Drs. Connor Reyes, Amy Santacruz, Timothy Cary and colleagues, with an educational korin from [employer]. Thrive Questionnaire Date Thrive assessed: 12/12/24 I am a: Patient What is your living situation today?: I have a steady place to live Within the past 12 months, did the food you bought not last and you didn't have the money to get more?: Never true Within the past 12 months, did you worry whether your food would run out before you got money to buy more?: Never true Do you have trouble paying for medicines?: No Do you have trouble getting transportation to medical appointments?: No Do you have trouble paying your heating and electricity bill?: No Do you have trouble taking care of your child, family member or friend?: No Do you have trouble with day-to-day activities such as bathing, preparing meals, shopping, managing finances, etc.?: Yes Are you currently unemployed and looking for a job?: No Are you interested in more education?: No Please select the resources that you would like help with: None Currently or been in a relationship where the following occur: No concerns reported THRIVE Score: 0 AUDIT C Alcohol Use Questionnaire (AUDIT-C) 1. How often do you have a drink containing alcohol?: Never 3. How often do you have six or more drinks on one occasion?: Never Total Score: 0 KANDICE-7 AMB Questionnaire KANDICE-7 Date KANDICE - 7 assessed: 12/12/24 Feeling nervous, anxious, or on edge: 1 = Several days Not being able to stop or control worryin = Several days Worrying too much about different things: 1 = Several days Trouble relaxin = Several days Being so restless that it is hard to sit still: 0 = Not at all Becoming easily annoyed or irritable: 1 = Several days Feeling afraid as if something awful might happen: 0 = Not at all Total KANDICE-7 score (0-4 normal; 5-9 mild; 10-14 moderate; 15-21 severe): 5 Source: Developed by Drs. Connor Reyes, Amy Santacruz, Timothy Cary and colleagues, with an educational korin from [employer]. KANDICE-7 Assessment Billing KANDICE-7 Assessment Tool: KANDICE-7 Assessment 80556 Review of Systems Const All systems reviewed & are unremarkable except as noted in HPI and below ENT Reports no additional complaints Card Reports no additional complaints Resp Reports no additional complaints GI Reports no additional complaints Reports no additional complaints Physical exam (Primary Care) Vital Signs: Last Vital Signs Temp 98.1 F 12/12/24 14:09 Pulse 82 12/12/24 14:09 Resp 18 12/12/24 14:09 BP 120/74 12/12/24 14:09 Pulse Ox 97 12/12/24 14:09 Oxygen Delivery Method Room Air 12/12/24 14:09 BMI result Body Mass Index 29.7 Tobacco/Smoking Status: Tobacco use Status Tobacco use date assessed 12/12/24 12/12/24 14:30 Patient Tobacco Use Status Never used Tobacco 12/12/24 14:30 e-Cigarette/Vaping Use Never Used 12/12/24 14:02 PHQ-9: PHQ-9 Score PHQ-9: Total score 6 12/12/24 14:44 Depression Screening Interpretation: Negative Thrive Assessment: Date of Thrive Assessment Date Thrive assessed 12/12/24 12/12/24 14:02 Currently or been in a relationship where the following occur: No concerns reported HENMT Head: Yes normal to inspection Eyes General: appearance normal, both eyes and all related structures Resp Effort & Inspection: normal respiratory effort Auscultation: clear to auscultation bilaterally Cardio Rhythm: regular rhythm Heart sounds: S1 normal heart sound present and S2 normal heart sound present Coding Level of Care Code Est Pt Level 3 (11694) Diagnoses Depression with anxiety F41.8 Additional Codes KANDICE-7 Assessment Billing - KANDICE-7 Assessment Tool: KANDICE-7 Assessment 98721 ([id number]) PHQ-9 - 60140 - PHQ-9 Billing: Yes ([id number]) Assessment & Plan Assessment & Plan (1) Depression with anxiety: Code(s): F41.8 - Other specified anxiety disorders Category: Medical Plan: Counseling was recommended but patient declined. Healthy lifestyle including sleep hygiene, well-balanced diet and regular physical activity discussed with the patient. Sertraline 25 mg for the first 3 days then 50 mg daily will be started. Patient will continue buspirone. She will follow-up in 1 month Medications: New sertraline 1/2 tabl qd x 3 days, 1 tabl qd 50 mg PO DAILY 90 tabs 0RF
[2024-12-12 14:09] VITALS: BP 120/74; PULSE 82; RESP 18; TEMP 36.7; O2SAT 97; BMI 29.7
== END 2024-12-12 15:45 | disposition home or self-care (01) ==
LOC: HO.HMCC 13:55
PROVIDERS: PCP Internal Medicine; Visit Provider Internal Medicine
DX: F41.8 Other specified anxiety disorders (principal)

== ENCOUNTER → 2024-12-12 13:54 | Outpatient (BNVA) | payer OTHER, SELFPAY | PROVIDERS: PCP Internal Medicine; Visit Provider Internal Medicine | DX: F41.8 Other specified anxiety disorders (principal) | CPT/HCPCS: 96127 ==

== ENCOUNTER 2024-12-24 12:09 | Outpatient (AMB) | payer OTHER, SELFPAY ==
--- NOTE | 2024-12-24 12:34 | MHC.PC.OV ---
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 Anxiety is better controlled on buspirone. Patient is still reports decreased appetite but denies depression. [facility] Medical History Anxiety Hx of screening mammography Annual physical exam Normal Pap smear Surgical History No pertinent past surgical history Family History Father Migraine Mother Diabetes mellitus Brother No problems noted. Son No problems noted. Daughter No problems noted. 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 (in [place] Housing: House Alcohol intake: current Alcohol intake frequency: holidays/special occasions only Patient Tobacco Use Status: Never used Tobacco e-Cigarette/Vaping Use: Never Used service: No Current occupational status: employed Cognitive needs: No Hearing needs: No Vision needs: Yes Questionnaire Thrive Questionnaire Date Thrive assessed: 12/12/24 I am a: Patient What is your living situation today?: I have a steady place to live Within the past 12 months, did the food you bought not last and you didn't have the money to get more?: Never true Within the past 12 months, did you worry whether your food would run out before you got money to buy more?: Never true Do you have trouble paying for medicines?: No Do you have trouble getting transportation to medical appointments?: No Do you have trouble paying your heating and electricity bill?: No Do you have trouble taking care of your child, family member or friend?: No Do you have trouble with day-to-day activities such as bathing, preparing meals, shopping, managing finances, etc.?: Yes Are you currently unemployed and looking for a job?: No Are you interested in more education?: No Please select the resources that you would like help with: None Currently or been in a relationship where the following occur: No concerns reported THRIVE Score: 0 KANDICE-7 AMB Questionnaire KANDICE-7 Date KANDICE - 7 assessed: 12/12/24 Source: Developed by Drs. Connor Reyes, Amy Santacruz, Timothy Cary and colleagues, with an educational korin from [email or web address]. Review of Systems Const All systems reviewed & are unremarkable except as noted in HPI and below Card Reports no additional complaints Resp Reports no additional complaints GI Reports no additional complaints Reports no additional complaints Physical exam (Primary Care) Vital Signs: Last Vital Signs Pulse 67 12/24/24 12:35 BP 118/70 12/24/24 12:35 Pulse Ox 96 12/24/24 12:35 BMI result Body Mass Index 28.8 Tobacco/Smoking Status: Tobacco use Status Tobacco use date assessed 12/12/24 12/24/24 12:35 Patient Tobacco Use Status Never used Tobacco 12/24/24 12:35 e-Cigarette/Vaping Use Never Used 12/24/24 12:35 Thrive Assessment: Date of Thrive Assessment Date Thrive assessed 12/12/24 12/24/24 12:35 Currently or been in a relationship where the following occur: No concerns reported Const General: no acute distress HENMT Face and sinus: Yes normal facial exam Resp Effort & Inspection: normal respiratory effort Auscultation: clear to auscultation bilaterally Cardio Rhythm: regular rhythm Heart sounds: S1 normal heart sound present and S2 normal heart sound present Coding Level of Care Code Est Pt Level 3 (36173) Diagnoses Anxiety F41.9 Assessment & Plan Assessment & Plan (1) Anxiety: Code(s): F41.9 - Anxiety disorder, unspecified Category: Medical Plan: Patient was advised to stop sertraline and take Benadryl for insomnia PRN. Patient will continue buspirone. She declined counseling Medications: Discontinued sertraline 1/2 tabl qd x 3 days, 1 tabl qd Discontinued Reason: Doctor's Order 50 mg PO DAILY 90 tabs 0RF
[2024-12-24 12:35] VITALS: BP 118/70; PULSE 67; O2SAT 96; BMI 28.8
== END 2024-12-24 15:00 | disposition home or self-care (01) ==
LOC: HO.HMCC 12:10
PROVIDERS: PCP Internal Medicine; Visit Provider Internal Medicine
DX: F41.9 Anxiety disorder, unspecified (principal)

== ENCOUNTER 2025-06-10 14:00 | Outpatient (AMB) | payer OTHER, SELFPAY ==
[2025-06-10 14:08] VITALS: BP 124/76; PULSE 83; RESP 17; TEMP 36.8; O2SAT 97; BMI 31.1
--- NOTE | 2025-06-10 14:08 | A.OFFPC_ITS ---
Vital Signs 06/10/25 14:08 Height 5 ft 4 in Weight 181 lb BMI 31.1 BP 124/76 Blood Pressure Location Lt brachial Position Sitting Respiration 17 Pulse 83 Pulse Source Pulse Oximeter Temp 98.2 F Temp Source Oral Pulse Oximetry (%) 97 Oxygen Delivery Method Room Air Intake Visit Reasons: PE Intake Note: Pt is here today for PE. Allergies sertraline Adverse Reaction (Verified 06/10/25 14:11) Insomnia Medication List - Last Reconciled 06/10/25 by Daxa Lee MD buspirone 15 mg PO TID Tobacco use date assessed: 06/10/25 Dental Screening Dental Screen Date: 12/12/24 HPI PE HPI Details Pt presents for PE PFSH Medical History Tubular adenoma Anxiety Hx of screening mammography Annual physical exam Normal Pap smear Surgical History (Updated 06/10/25 @ 14:35 by Daxa Lee MD) Hx of colonoscopy No pertinent past surgical history Family History Father Migraine Mother Diabetes mellitus Brother No problems noted. Son No problems noted. Daughter No problems noted. 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 (in [place] Housing: House Alcohol intake: current Alcohol intake frequency: holidays/special occasions only Patient Tobacco Use Status: Never used Tobacco e-Cigarette/Vaping Use: Never Used service: No Current occupational status: employed Cognitive needs: No Hearing needs: No Vision needs: Yes Questionnaire Thrive Questionnaire Date Thrive assessed: 12/12/24 I am a: Patient What is your living situation today?: I have a steady place to live Within the past 12 months, did the food you bought not last and you didn't have the money to get more?: Never true Within the past 12 months, did you worry whether your food would run out before you got money to buy more?: Never true Do you have trouble paying for medicines?: No Do you have trouble getting transportation to medical appointments?: No Do you have trouble paying your heating and electricity bill?: No Do you have trouble taking care of your child, family member or friend?: No Do you have trouble with day-to-day activities such as bathing, preparing meals, shopping, managing finances, etc.?: Yes Are you currently unemployed and looking for a job?: No Are you interested in more education?: No Currently or been in a relationship where the following occur: No concerns reported THRIVE Score: 0 KANDICE-7 AMB Questionnaire KANDICE-7 Date KANDICE - 7 assessed: 12/12/24 Source: Developed by Drs. Connor Reyes, Amy Santacruz, Timothy Cary and colleagues, with an educational korin from [email or web address]. Review of Systems Const All systems reviewed & are unremarkable except as noted in HPI and below Eyes Reports no additional complaints ENT Reports no additional complaints Resp Reports no additional complaints GI Reports no additional complaints Reports no additional complaints Musc Reports no additional complaints Physical exam (Primary Care) Vital Signs: Last Vital Signs Temp 98.2 F 06/10/25 14:08 Pulse 83 06/10/25 14:08 Resp 17 06/10/25 14:08 BP 124/76 06/10/25 14:08 Pulse Ox 97 06/10/25 14:08 Oxygen Delivery Method Room Air 06/10/25 14:08 BMI result Body Mass Index 31.1 Tobacco/Smoking Status: Tobacco use Status Tobacco use date assessed 06/10/25 06/10/25 14:15 Patient Tobacco Use Status Never used Tobacco 06/10/25 14:08 e-Cigarette/Vaping Use Never Used 06/10/25 14:08 Thrive Assessment: Date of Thrive Assessment Date Thrive assessed 12/12/24 06/10/25 14:08 Currently or been in a relationship where the following occur: No concerns reported Const General: no acute distress HENMT Head: Yes normal to inspection Ears: TM's normal bilaterally Face and sinus: Yes normal facial exam Mouth: Normal oral and palatal mucosa present Eyes General: appearance normal, both eyes and all related structures Neck Neck: Yes no lymphadenopathy and Yes supple Resp Effort & Inspection: normal respiratory effort Auscultation: clear to auscultation bilaterally Cardio Rhythm: regular rhythm Heart sounds: S1 normal heart sound present and S2 normal heart sound present GI Inspection: Yes normal to inspection Palpation (GI): Soft to palpation Percussion: Yes normal to percussion Auscultation: normal bowel sounds Coding Level of Care Code Est Pt Prev Care 40-64y(73367) Diagnoses Tubular adenoma D36.9 Annual physical exam Z00.00 Anxiety F41.9 Assessment & Plan Assessment & Plan (1) Tubular adenoma: Comment: 2 TA, 08/2024 Dr. Desai repeat 3 yrs Code(s): D36.9 - Benign neoplasm, unspecified site Category: Medical Plan: Patient needs repeat colonoscopy in 3 years (2) Annual physical exam: Code(s): Z00.00 - Encounter for general adult medical examination without abnormal findings Category: Medical Plan: Well-balanced diet regular physical activity discussed with the patient. She is up-to-date with the Pap smear pelvic exam by gamma operator. Patient is up-to-date with the mammogram. She will return for fasting blood work (3) Anxiety: Code(s): F41.9 - Anxiety disorder, unspecified Category: Medical Plan: Continue BuSpar Orders: Orders Comprehensive [place]. Panel Fast Today Z00.00 - Encounter for general adult me dical examination without abnormal findings Complete Blood Count Auto Diff Today Z00.00 - Encounter for general adult medical examination without abnormal findings Lipid Panel Today Z00.00 - Encounter for general adult medical examination without abnormal findings TSH reflex Free T4 Today Z00.00 - Encounter for general adult medical examination without abnormal findings Vitamin D 25-OH Total Today Z00.00 - Encounter for general adult medical examination without abnormal findings UA w Microscopic Today Z00.00 - Encounter for general adult medical examination without abnormal findings
== END 2025-06-10 14:48 | disposition home or self-care (01) ==
LOC: HO.HMCC 14:01
PROVIDERS: PCP Internal Medicine; Visit Provider Internal Medicine
DX: D36.9 Benign neoplasm, unspecified site (principal); Z00.00 Encounter for general adult medical examination without abnormal findings; F41.9 Anxiety disorder, unspecified